=== PATIENT | female | born 1980 | race Caucasian/White ===

== ENCOUNTER 2018-01-23 11:25 | Emergency (ER) | payer MEDICAID ==
[2018-01-23] MEDS: SOD CHLORIDE 0.9% 1,000 ML IV (12:24)
[2018-01-23] MEDS: METOCLOPRAMIDE 10 MG INJ IV (12:40)
[2018-01-23] MEDS: KETOROLAC 30 MG INJ IV (13:17)
== END 2018-01-23 14:15 | disposition home or self-care (01) ==
LOC: FTE 11:25
DX: R51 Headache (principal); J45.909 Unspecified asthma, uncomplicated; R40.2252 Coma scale, best verbal response, oriented, at arrival to emergency department; R40.2362 Coma scale, best motor response, obeys commands, at arrival to emergency department; R40.2143 Coma scale, eyes open, spontaneous, at hospital admission; Z79.82 Long term (current) use of aspirin
CPT/HCPCS: 70450; 81025; 96361; 96374; 96375; 99285-25

== ENCOUNTER 2018-05-08 10:47 | Emergency (ER) | payer MEDICAID | END 2018-05-08 11:20 | disposition home or self-care (01) | LOC: FTE 10:47 | DX: T78.3XXA Angioneurotic edema, initial encounter (principal); J45.909 Unspecified asthma, uncomplicated; Z79.82 Long term (current) use of aspirin | CPT/HCPCS: 99283; Z7502 ==

== ENCOUNTER 2018-05-21 06:41 | Emergency (ER) | payer MEDICAID ==
[2018-05-21] MEDS: SOD CHLORIDE 0.9% 1,000 ML IV (08:08)
[2018-05-21] MEDS: METOCLOPRAMIDE 10 MG INJ IV (08:08)
[2018-05-21] MEDS: DIPHENHYDRAMINE 50 MG INJ IV (08:09)
[2018-05-21] MEDS: KETOROLAC 30 MG INJ IV (08:13)
== END 2018-05-21 09:52 | disposition home or self-care (01) ==
LOC: FTE 06:41
DX: R51 Headache (principal); J45.909 Unspecified asthma, uncomplicated; Z79.82 Long term (current) use of aspirin
CPT/HCPCS: 81025; 96361; 96374; 96375; 99284-25